=== PATIENT | female | born 1990 | race Caucasian/White ===

== ENCOUNTER 2017-08-09 20:43 | Emergency (ER) | payer MEDICAID ==
[~2017-08-09] VITALS: Ht 162.6 cm; Wt 96.0 kg
[~2017-08-09 20:43] MED LIST: SULF-154 PO
[2017-08-09 20:45] VITALS: BP 144/79; PULSE 88; RESP 18; TEMP 97.9; O2SAT 99
[2017-08-09] MEDS ORDERED: VENTAER INH ×2 (21:58→22:03)
[2017-08-09] MEDS ORDERED: PRED-503 PO (22:03)
--- NOTE | 2017-08-09 22:03 | PD ---
HPI Chief Complaint: Cold / Flu Symptoms Time Seen by Provider: 21:53 Travel History International Travel<30 days: No Contact w/Intl Traveler<30days: No Traveled to known affect area: No History of Present Illness HPI 26 year-old woman, history of asthma, early , presents to the ED complaining of cough cold symptoms are worsening asthma symptoms. Out of her inhaler just tonight. Had been doing well with her inhaler but does not have a primary physician. No fevers. A little bit of vomiting but thinks it may be related to the . Family member was sick as well with similar symptoms. Otherwise doing well. No urinary symptoms. No vaginal bleeding or vaginal discharge. History Past Medical History Narrative Medical Asthma Influenza Vaccination: No LMP: 07/06/17 : 4 Para: 3 Social History Alcohol Use: No Tobacco Use: Yes (1PPD) Allergies-Medications (Allergen,Severity, Reaction): Coded Allergies: coconut (Unverified Allergy, Severe, ANAPHALAXIS, 08/09/17) penicillin G (Unverified Allergy, Severe, ANAPHALAXIS, 08/09/17) Reported Meds & Prescriptions Reported Meds & Active Scripts Active Reported Ventolin Hfa 18 GM Inh (Albuterol Sulfate) 90 Mcg/Act Aer 2 Puff INH Q4-6H PRN Review of Systems Except as stated in HPI: all other systems reviewed are Neg Physical Exam Narrative GENERAL: Well-appearing 26 year-old woman, no acute distress. SKIN: Focused skin assessment warm/dry. HEAD: Atraumatic. Normocephalic. EYES: Pupils equal and round. No scleral icterus. No injection or drainage. ENT: No nasal bleeding or discharge. Mucous membranes pink and moist. TMs normal. Throat is normal. NECK: Trachea midline. No adenopathy. CARDIOVASCULAR: Regular rate and rhythm. No murmur appreciated. RESPIRATORY: No accessory muscle use. Clear to auscultation. Breath sounds equal bilaterally. GASTROINTESTINAL: Abdomen soft, non-tender, nondistended. Hepatic and splenic margins not palpable. MUSCULOSKELETAL: No obvious deformities. Data Data Last Documented VS Vital Signs Date Time Temp Pulse Resp B/P (MAP) Pulse Ox O2 Delivery O2 Flow Rate FiO2 08/09/17 20:45 97.9 88 18 144/79 (100) 99 Room Air MDM Medical Decision Making Medical Screen Exam Complete: Yes Emergency Medical Condition: Yes Differential Diagnosis URI, bronchitis, asthma, other Narrative Course Medical decision making INITIAL: 26-year-old woman with asthma and URI symptoms. Looks well. Symptoms controlled with her medications at home just ran out tonight. We'll give her refill on her albuterol, we'll give her prescription for prednisone to start if she has any worsening symptoms. Diagnosis Primary Impression: URI (upper respiratory infection) Additional Impression: Asthma Additional Instructions: Use albuterol inhaler 4-6 hours as needed. Symptoms worsen at all, start prednisone. Return to the emergency department for any new or worsening symptoms. Med/Other Pt SpecificInfo: Prescription(s) given Scripts Prednisone (Deltasone) 20 Mg Tab 60 MG PO DAILY for 5 Days, #15 TAB 0 Refills Prov: Dudley Hampton MD 08/09/17 Albuterol 18 GM Inh (Ventolin Hfa 18 GM Inh) 90 Mcg/Act Aer 2 PUFF INH Q4-6H Y for SHORTNESS OF BREATH, #1 INHALER 6 Refills Prov: Dudley Hampton MD 08/09/17 Disposition: 01 DISCHARGE HOME Condition: Stable Dudley Hampton MD Aug 09, 2017 22:03
== END 2017-08-09 22:16 | disposition home or self-care (01) ==
LOC: NEPE 20:43
DX: O98.819 Other maternal infectious and parasitic diseases complicating pregnancy, unspecified trimester (principal); J06.9 Acute upper respiratory infection, unspecified; O99.519 Diseases of the respiratory system complicating pregnancy, unspecified trimester; J45.909 Unspecified asthma, uncomplicated; O99.330 Smoking (tobacco) complicating pregnancy, unspecified trimester
CPT/HCPCS: 99284

== ENCOUNTER 2017-12-19 20:53 | Emergency (ER) | payer MEDICAID, OTHER ==
[~2017-12-19 20:53] MED LIST changes: +PRED-503 PO; -SULF-154 PO; +VENTAER INH
[2017-12-19 20:58] VITALS: BP 146/75; PULSE 20; PULSE 78; RESP 20; TEMP 97.9; O2SAT 95
[2017-12-19] MEDS ORDERED: VENTAER INH (21:53)
[2017-12-19] MEDS ORDERED: PRED20 PO (21:53)
--- NOTE | 2017-12-19 21:56 | PD ---
HPI Chief Complaint: Cold / Flu Symptoms Time Seen by Provider: 21:46 Travel History International Travel<30 days: No Contact w/Intl Traveler<30days: No Traveled to known affect area: No History of Present Illness HPI This patient has a smoking asthmatic who complains of cough and congestion and wheezing. She ran out of her breathing inhaler. Denies fever. She has nasal congestion and dry hacking cough. Severity is moderate. No chest pain PFSH Past Medical History Asthma: Yes Diminished Hearing: No Respiratory: Yes (ASTHMA) Immunizations Current: No Tetanus Vaccination: < 5 Years Influenza Vaccination: No ?: Unknown LMP: YESTERDAY : 4 Para: 3 Past Surgical History Tonsillectomy: Yes Other Surgery: Yes (ESOPHAGEAL SCRAPING FOR ABSCESSED TONSILS) Social History Alcohol Use: No Tobacco Use: Yes (1PPD) Substance Use: No Allergies-Medications (Allergen,Severity, Reaction): Coded Allergies: coconut (Unverified Allergy, Severe, ANAPHALAXIS, 08/09/17) penicillin G (Unverified Allergy, Severe, ANAPHALAXIS, 08/09/17) Reported Meds & Prescriptions Reported Meds & Active Scripts Active Ventolin Hfa 18 GM Inh (Albuterol Sulfate) 90 Mcg/Act Aer 2 Puff INH Q4H PRN Prednisone 20 Mg Tab 40 Mg PO DAILY Take 40 mg (2 tablets) daily for 5 days Review of Systems General / Constitutional: No: Fever Eyes: No: Visual changes HENT: No: Headaches Cardiovascular: No: Chest Pain or Discomfort Respiratory: Positive: Cough, Wheezing Gastrointestinal: No: Diarrhea Genitourinary: No: Frequency Musculoskeletal: No: Pain Skin: No Rash Neurologic: No: Weakness Psychiatric: No: Depression Endocrine: No: Polydipsia Hematologic/Lymphatic: No: Easy Bruising Physical Exam Narrative GENERAL: Well-nourished, well-developed patient in no apparent distress. SKIN: Focused skin assessment reveals no rash and nodules. Skin is Warm and dry. HEAD: Atraumatic. Normocephalic. EYES: Pupils equal and round. No scleral icterus. No injection or drainage. ENT: No nasal bleeding or discharge. Mucous membranes pink and moist. NECK: Trachea midline. No JVD. CARDIOVASCULAR: Regular rate and rhythm. No murmur appreciated. RESPIRATORY: No accessory muscle use. Diffuse expiratory wheezing . Breath sounds equal bilaterally. GASTROINTESTINAL: Abdomen soft, non-tender, nondistended. Hepatic and splenic margins not palpable. MUSCULOSKELETAL: No obvious deformities. No clubbing. No cyanosis. No edema. NEUROLOGICAL: Awake and alert. No obvious cranial nerve deficits. Motor grossly within normal limits. Normal speech. PSYCHIATRIC: Appropriate mood and affect; insight and judgment normal. Data Data Last Documented VS Vital Signs Date Time Temp Pulse Resp B/P (MAP) Pulse Ox O2 Delivery O2 Flow Rate FiO2 12/19/17 20:58 97.9 78 20 146/75 (98) 95 Orders Orders Albuterol-Ipratropium Neb (Duoneb Neb) (12/19/17 22:00) Prednisone (Deltasone) (12/19/17 22:00) [facility] Medical Decision Making Medical Screen Exam Complete: Yes Emergency Medical Condition: Yes Medical Record Reviewed: Yes Differential Diagnosis Asthma, bronchitis, pneumonia Narrative Course I have reviewed the patient's electronic medical record. Presentation is consistent with asthma triggered by smoking and viral bronchitis I gave her a nebulizer treatment here and a dose of prednisone Prescribed her 5 days of prednisone and albuterol inhaler Diagnosis Primary Impression: Asthma with acute exacerbation Qualified Codes: J45.901 - Unspecified asthma with (acute) exacerbation Additional Instructions: Stop smoking The patient was advised to follow up with their physician and return if they worsen. Med/Other Pt SpecificInfo: Prescription(s) given Scripts Albuterol 18 GM Inh (Ventolin Hfa 18 GM Inh) 90 Mcg/Act Aer 2 PUFF INH Q4H Y for SHORTNESS OF BREATH, #1 INHALER 0 Refills Prov: Travis Baker MD 12/19/17 Prednisone (Prednisone) 20 Mg Tab 40 MG PO DAILY, #10 TAB 0 Refills Take 40 mg (2 tablets) daily for 5 days Prov: Travis Baker MD 12/19/17 Disposition: 01 DISCHARGE HOME Condition: Stable Travis Baker MD December 19, 2017 21:56
[2017-12-19] MEDS ORDERED: RESP: ALBUTEROL 2.5 MG/IPRATROPIUM 0.5 MG NEB (SCH) NEB ONE (22:00)
[2017-12-19] MEDS ORDERED: predniSONE 20 MG TAB PO ONE (22:00)
[2017-12-19 22:33] VITALS: BP 145/85
== END 2017-12-19 22:33 | disposition home or self-care (01) ==
LOC: PHED 20:53
DX: J45.901 Unspecified asthma with (acute) exacerbation (principal); F17.200 Nicotine dependence, unspecified, uncomplicated; Z88.0 Allergy status to penicillin; Z79.51 Long term (current) use of inhaled steroids; Z79.899 Other long term (current) drug therapy
CPT/HCPCS: 94664; 99283; J7512